=== PATIENT | female | born 1985 | race Caucasian/White ===

== ENCOUNTER → 2017-06-24 | Day surgery (SDC) | payer OTHER ==
[~2017-06-24] VITALS: Ht 152.4 cm; Wt 81.6 kg
[~2017-06-24] MED LIST: ATIVAN0.5 M1 PO; CHILDREN'S160 MG/51 PO; IBUPROFEN800 MG PO; LEXAPRO10 M1 PO; TYLENOL TAB 32325 MG PO; [UNRECOGNIZED DRUG - MIXTURE] PO
--- NOTE | 2017-06-24 14:52 | Operative Report ---
See Addendum Operative/Inv Procedure Report Surgery Date: 06/24/17 Name of Procedure: Bilateral reduction mammoplasty Pre-Operative Diagnosis: Symptomatically macromastia Post-Operative Diagnosis: Same Estimated Blood Loss: scant (200) Surgeon/Scrap Cutter: ISMAEL HANSEN MD Anesthesia: general endotracheal tube Operative/Procedure Note Note: Patient was counseled regards to the procedure the alternatives risks and expected outcomes as relates to request for surgical intervention to treat symptomatic macromastia. She was given and a SPS informed consents which she has returned sign has no further questions regarding and tape. No guarantees were given in regards to cup size. He will remain after the surgery and her inverted nipple on the left is not being addressed today and she is well aware of this. Patient was marked in the standing position for an inferior pedicle Causey pattern technique. She signed informed consent. She was brought to the operating room placed supine on the table Venodyne boots are placed and then the patient was given general anesthesia and antibiotics. The chest was prepped and draped in usual sterile fashion. The incisions were deepened after de- epithelializing an inferior pedicle of 10 cm. Superior medial and lateral segments were removed bilaterally 3 layer closure was carried out and the patient was put in the sitting position to locate the nipple areola complexes. 3 layer closure was carried out over those as well. Ends dictation
== END ==
LOC: STS 02:04
DX: N62 Hypertrophy of breast (principal); M54.9 Dorsalgia, unspecified; E66.9 Obesity, unspecified; Z68.36 Body mass index [BMI] 36.0-36.9, adult
CPT/HCPCS: 36415; 81025; 88305; C9399; J0131; J0690; J2250; J2405; Q9968